=== PATIENT | female | born 1965 | race Asian ===

== ENCOUNTER 2022-08-16 15:20 | Outpatient (CLI) | payer BC | END 2022-08-16 15:21 | disposition home or self-care (01) | LOC: CSHMAMMO 15:20 | PROVIDERS: ATTEND Physician Assistant | DX: Z12.31 Encounter for screening mammogram for malignant neoplasm of breast (principal); Z91.89 Other specified personal risk factors, not elsewhere classified; Z98.82 Breast implant status | CPT/HCPCS: 77063; 77067 ==